=== PATIENT | female | born 1990 | race Two or more races ===

== ENCOUNTER 2017-02-13 15:21 | Emergency (ER) | payer OTHER ==
[~2017-02-13] VITALS: Ht 167.6 cm; Wt 63.5 kg
[2017-02-13] MEDS ORDERED: ALBU17IN2 INH (15:30)
[2017-02-13] MEDS ORDERED: ADACEL/BOOSTRIX VACCINE (DIPHTH/PERTUSS/ACELL/TETANUS)0.5ML SYR (90715) IM ONE (16:45)
[2017-02-13 16:59] VITALS: BP 128/80
[2017-02-13] MEDS ORDERED: DERMABOND TOPICAL SKIN ADHESIVE TOP ONE (17:00)
== END 2017-02-13 17:03 | disposition home or self-care (01) ==
LOC: M ED 15:35
DX: S61.218A Laceration without foreign body of other finger without damage to nail, initial encounter (principal); W26.8XXA Contact with other sharp object(s), not elsewhere classified, initial encounter; Y92.59 Other trade areas as the place of occurrence of the external cause; Y93.89 Activity, other specified; Y99.0 Civilian activity done for income or pay; J45.909 Unspecified asthma, uncomplicated